=== PATIENT | female | born 1935 | race Hispanic/Latino ===

== ENCOUNTER 2017-03-20 09:08 | Outpatient (CLI) | payer MEDICARE ==
[2017-03-20] MEDS ORDERED: NACL ONE (10:31)
--- NOTE | 2017-03-25 08:09 | Cat Scan Report ---
CTA NECK: HISTORY: Occlusion and stenosis of bilateral carotid arteries. TECHNIQUE: Helical CT following IV contrast. Sagittal and coronal reformatted images. 3D volume rendering technique. Stenosis was calculated using NASCET criteria. COMPARISON: None at this facility. FINDINGS: The visualized aortic arch is widely patent less than 20% stenosis. A bovine arch is identified. The proximal bilateral subclavian arteries are widely patent with less than 20% stenosis. Within the right carotid system, there are mild to moderate partially calcified plaques at the carotid bifurcation extending into the proximal right ICA. Stenosis measures up to 40% in the proximal right ICA. The remainder of the right carotid system is widely patent. Within the left carotid system, there are moderate to severe partially calcified irregular plaques extending from the left carotid bulb to the proximal and mid portions of left ICA. Luminal narrowing is greatest in the proximal left ICA with 67% stenosis by NASCET criteria. The vertebral arteries patent and codominant. No hemodynamically significant stenosis is appreciated although the proximal vertebral arteries are very tortuous. IMPRESSION: Moderate atherosclerotic plaques at both carotid bifurcations. 40% stenosis in the proximal right ICA. 67% stenosis in the proximal left ICA. Bovine arch. Consider correlation with carotid Doppler.
== END 2017-03-20 09:09 | disposition home or self-care (01) ==
LOC: CT 09:08
PROVIDERS: ATTEND Surgery Vascular Surgery
DX: I65.23 Occlusion and stenosis of bilateral carotid arteries (principal)
CPT/HCPCS: 36415; 70498; 82565; 84520; Q9967